=== PATIENT | male | born 1990 | race Caucasian/White ===

== ENCOUNTER 2019-02-14 04:08 | Observation (INO) | payer BC ==
[2019-02-14] MEDS ORDERED: NS 0.9% 1000 ML** 1,000 ML IV ONE (04:20)
[2019-02-14] MEDS ORDERED: Pantoprazole IV* 40 MG IV ONE (04:31)
--- NOTE | 2019-02-14 04:31 | ED ---
GI/ HPI - HPI Summary HPI Summary: This patient is a 28 year old M presenting to ED with a chief complaint of hematemesis 1x since 0300 this morning. On 02/13/19 patient felt normal and had a late lunch of leftover spicy food. Patient was on a boat on [place] until 1900. He tried to eat food at home at 2200, but felt the food got stuck. He forced the food down. Patient later in the night went out with friends and drank more alcohol and some water until 0000 this morning. Patient then went home and went to bed. With all his oral ingestion, patient reports the food or liquid getting stuck at the same spot. Patient woke up this morning at 0300 with sweating and began to feel epigastric pain that has been intermittent. He drank more water but was not feeling good. He then vomited multiple times tarry coffee ground with bright red blood only once. Patient has had history of difficulty breathing and food getting lodged in the esophagus, but he reports this is different. The patient rates the pain 7/10 in severity. Symptoms aggravated by nothing. Symptoms alleviated by nothing. Patient reports nausea, epigastric pain. - History of Current Complaint Chief Complaint: EDAbdPain Time Seen by Provider: 02/14/19 04:18 Stated Complaint: VOMITING BLOOD PER PT Hx Obtained From: Patient Onset/Duration: Started Hours Ago Timing: Intermittent Severity: Moderate Current Severity: Moderate Pain Intensity: 7 Location of Pain: Epigastric Pain Characteristics: Other: - Food/drink stuck Associated Signs and Symptoms: Positive: Hematemesis, Nausea, Vomiting, Abdominal Pain - Epigastric Aggravating Factor(s): Nothing Alleviating Factor(s): Nothing - Allergy/Home Medications Allergies/Adverse Reactions: Allergies Allergy/AdvReac Type Severity Reaction Status Date / Time No Known Allergies Allergy Verified 01/30/16 13:24 Home Medications: Home Medications Cetirizine HCl [Zyrtec] 10 mg PO DAILY PRN 02/14/19 [History Confirmed 02/14/19] Fluticasone NASAL SPRAY 50MCG* [Flonase NASAL SPRAY 50MCG*] 2 spray BOTH NARES DAILY PRN 02/14/19 [History Confirmed 02/14/19] PMH/Surg Hx/FS Hx/Imm Hx Endocrine/Hematology History: Denies: Hx Anticoagulant Therapy, Hx Diabetes, Hx Thyroid Disease Cardiovascular History: Denies: Hx Congestive Heart Failure, Hx Deep Vein Thrombosis, Hx Hypertension , Hx Myocardial Infarction, Hx Pacemaker/ICD Respiratory History: Denies: Hx Asthma, Hx Chronic Obstructive Pulmonary Disease (COPD), Hx Lung Cancer, Hx Pneumonia, Hx Pulmonary Embolism GI History: Reports: Hx Diverticulosis Denies: Hx Gall Bladder Disease, Hx Gastrointestinal Bleed, Hx Ulcer, Hx Urosepsis History: Denies: Hx Kidney Stones, Hx Renal Disease Neurological History: Denies: Hx Dementia, Hx Migraine, Hx Seizures, Hx Transient Ischemic Attacks (TIA) Psychiatric History: Reports: Hx Anxiety Denies: Hx Depression, Hx Schizophrenia, Hx Bipolar Disorder - Surgical History Surgery Procedure, Year, and Place: WISDOM TEETH EXTRACTION Infectious Disease History: No Infectious Disease History: Denies: Hx Hepatitis, Hx Human Immunodeficiency Virus (HIV), History Other Infectious Disease, Traveled Outside the [place] in Last 30 Days - Family History Known Family History: Positive: Non-Contributory - Social History Alcohol Use: Occasionally Hx Substance Use: No Substance Use Type: Reports: None Hx Tobacco Use: Yes Smoking Status (MU): Light Every Day Tobacco Smoker Type: Cigarettes Amount Used/How Often: 1 pk/wk Review of Systems Positive: Skin Diaphoresis Positive: Vomiting - Hemetemesis, Nausea All Other Systems Reviewed And Are Negative: Yes Physical Exam - Summary Physical Exam Summary: Appearance: Well-appearing, Well-nourished, lying in bed comfortable Skin: Warm, dry, no obvious rash Eyes: sclera anicteric, no conjunctival pallor ENT: mucous membranes moist Neck: deferred Respiratory: No signs of respiratory distress Cardiovascular: Appears well perfused, pulses are nml Abdomen: deferred Musculoskeletal: Moving all 4 extremities without obvious discomfort Neurological: Awake and alert, mentation is normal, speech is fluent and appropriate Psychiatric: affect is normal, does not appear anxious or depressed Triage Information Reviewed: Yes Vital Signs On Initial Exam: Initial Vitals Temp Pulse Resp BP Pulse Ox 97.3 F 77 18 125/88 98 02/14/19 04:09 02/14/19 04:09 02/14/19 04:09 02/14/19 04:09 02/14/19 04:09 Vital Signs Reviewed: Yes Diagnostics - Vital Signs Vital Signs Temp Pulse Resp BP Pulse Ox 02/14/19 04:09 97.3 F 77 18 125/88 98 - Laboratory Result Diagrams: 07/14/19 04:40 02/14/19 04:40 Lab Statement: Any lab studies that have been ordered have been reviewed, and results considered in the medical decision making process. GIGU Course/Dx - Course Course Of Treatment: This patient is a 28 year old M presenting to ED with a chief complaint of hematemesis 1x since 0300 this morning. In the ED course, patient received fluids, Protonix, Maalox Plus, and Xylocaine. Blood work obtained. Discussed patient case with LEIGH Cruz, who recommended a CXR. Patient will be signed out to Dr. Delroy Esposito at 0700 on 02/14/19 at shift change pending 2nd hemoglobin. - Diagnoses Provider Diagnoses: Upper GI bleed, Esophageal stricture - Physician Notifications Discussed Care Of Patient With: Rogers Barr Time Discussed With Above Provider: 07:05 Instructed by Provider To: Other - Discussed patient case with LEIGH Cruz, who recommended a CXR. Discharge - Sign-Out/Discharge Documenting (check all that apply): Sign-Out Patient Signing out patient TO: Delroy Esposito Patient Received Moderate/Deep Sedation with Procedure: No - Discharge Plan Condition: Stable Referrals: No Primary Care Phys,NOPCP [Primary Care Provider] - - Attestation Statements Document Initiated by Scribe: Yes Documenting Scribe: Geo Cabrera Provider For Whom Scribe is Documenting (Include Credential): Scar Mclain MD Scribe Attestation: Geo Colbert, scribed for Scar Mclain MD on 02/14/19 at 0705. Status of Scribe Document: Ready
[2019-02-14 04:48] LABS: ABS Basophils 0.1 10^3/ul (0-0.2); ABS Lymphocytes 3.2 10^3/ul (1.0-4.8); ABS Monocytes 0.8 10^3/ul (0-0.8); ABS Neutrophils 10.1 10^3/ul (1.5-7.7); Eosinophil % 0.3 %; Hematocrit 41 % (42-52); Lymphocyte % 22.4 %; Mean Corpuscular HGB Conc 34 g/dL (31-36); Mean Corpuscular Hemoglobin 30 pg (27-31); Mean Corpuscular Volume 89 fL (80-94); Mean Platelet Volume 9.5 fL (7.4-10.4); Platelet Count 338 10^3/uL (150-450); Red Blood Count 4.62 10^6 /uL (4.18-5.48); Red Cell Distribution Width 13 % (10-15); White Blood Count 14.2 10^3/uL (3.5-10.8)
[2019-02-14 05:01] LABS: Activated Partial Thrombo Time 31.9 seconds (26.0-38.0); INR 1.09 (0.82-1.09)
[2019-02-14 05:03] LABS: Albumin 4.8 g/dL (3.2-5.2); Albumin/Globulin Ratio 1.7 (1-3); BUN/Creatinine Ratio 26.7 (8-20); Calcium 9.5 mg/dL (8.6-10.3); EGFR African American 122.5 (>60); EGFR Non-African American 101.2 (>60); Globulin 2.9 g/dL (2-4); Total Bilirubin 0.9 mg/dL (0.2-1.0); Total Protein 7.7 g/dL (6.4-8.9)
[2019-02-14] MEDS ORDERED: Lidocaine 2% VISCOUS* 15 ML UDC PO ONE (05:54)
[2019-02-14] MEDS ORDERED: Al Hydrox/Mg Hydrox/Simet LIQ* 30 ML UDC PO ONE (05:54)
--- NOTE | 2019-02-14 07:13 | ED ---
Progress - Progress Note Progress Note: This patient was signed out from Dr. Mclain to Dr. Esposito upon shift change at 07 :00 02/14/19 pending second hemoglobin. Second H&H 12.36. The patient will be admitted to Dr. Pastrana, hospitalist. - EKG/XRAY/CT XRAY: chest Xray Comments: No active cardiopulmonary disease. ED physician has reviewed this report. Course/Dx - Course Course Of Treatment: This patient is a 28-year-old male who was signed out from Dr. Mclain. He reports that the patient had 2 episodes of hematemesis. He requested to repeat H&H and consult with Dr. Barr. The first H&H was and the second is 12./36. I discussed the case with Dr. Barr and since the H&H have decreased he requested for the patient to be admitted to the hospital services. I discuss my physical exam and test results with Dr. Pastrana from the hospitalist services and he agrees to admit patient to his services. Patient is hemodynamically stable alert and oriented x 3. - Diagnoses Provider Diagnoses: Upper GI bleed, Esophageal stricture - Provider Notifications Discussed Care Of Patient With: Rogers Barr Time Discussed With Above Provider: 08:33 Instructed by Provider To: Other - recommended admission Discharge - Sign-Out/Discharge Documenting (check all that apply): Patient Departure - admit, Receiving Sign- Out Receiving patient FROM: Scar Mclain Patient Received Moderate/Deep Sedation with Procedure: No - Discharge Plan Condition: Improved Disposition: ADMITTED TO [facility] - Billing Disposition and Condition Condition: FAIR Disposition: Admitted to [facility] - Attestation Statements Document Initiated by Tom: Yes Documenting Scribe: Ellis Wills Provider For Whom Tom is Documenting (Include Credential): Delroy Esposito MD Scribangela Attestation: I, Ellis Wills, scribed for Delroy Esposito MD on 02/15/19 at 2018. Scribe Documentation Reviewed: Yes Provider Attestation: The documentation as recorded by the Ellis bo accurately reflects the service I personally performed and the decisions made by me, Delroy Esposito MD Status of Scribe Document: Viewed Consult Consult: At 08:40- Discussed case with Dr. Pastrana, hospitalist, who accepted the patient for admission.
[2019-02-14 07:32] LABS: Hematocrit 36 % (42-52); Hemoglobin 12.4 g/dL (14.0-18.0)
[2019-02-14] MEDS ORDERED: Morphine INJ* 2 MG/ML 1 ML SYRINGE (TWO MG - NEW SYRINGE VERSION) IV PRN (09:40)
[2019-02-14] MEDS ORDERED: Ondansetron INJ* 2 MG/ML VIAL IV PRN (09:40)
[2019-02-14 09:59] LABS: C Reactive Protein 4.54 mg/L (<8.01)
[2019-02-14] MEDS ORDERED: Iohexol 300* (CONTRAST) 10 ML SDV IV ONE (10:42)
[2019-02-14] MEDS: NS 0.9% 1000 ML** 1,000 ML IV SCH ×2 (11:21→22:25)
[2019-02-14] MEDS: Pantoprazole* 80 mg IN NS 80 MG/250 ML BAG IV SCH ×2 (11:21→22:59)
--- NOTE | 2019-02-14 12:25 | CONS ---
GASTROENTEROLOGY CONSULT: DATE: 02/14/19 CONSULTING PHYSICIANS: Dr. Loni Pastrana; Dr. Prabhu Espinoza, [facility]. REASON FOR CONSULTATION: Epigastric distress and hematemesis at 3:30 a.m. HISTORY: This 28-year-old man was out on the [facility], Friday, and said it was a long day. He had some hot dogs and a hamburger, and spiked seltzer beltran. He went home and had some leftover takeout. He states he felt something get stuck for a few seconds. Solid food dyphagia events are actually fairly common for him and he says he normally cuts things smaller and chews more than the average person. He went to bed around 11. He awakened at 3, rather dyspeptic and had some antacids. At 3:30 he vomited bile and blood. He vomited several times at home. There was persistent aching in the lower substernal area. He came to the emergency room around 4 and was afebrile, with a white count of 14, and a chest x-ray that was negative. He had no further vomiting in the ER. He still complains of epigastric pain and pain when he burps. Under observation in the emergency room, he has had no further vomiting. His temp has remained fine. He has not had any bowel movements. He thinks his last bowel movement was yesterday. He is tired and on most questions initially says he cannot remember. PAST MEDICAL HISTORY: 1. Eosinophilic esophagitis - He had positive biopsies in January 2011 when he had upper endoscopy by Dr. Cano for history of dysphagia. The esophagus was said to appear normal so no dilation was done though there were eosinophils on biopsy. He is not sure who, but believes it was Dr. Burnette, who prescribed an inhaler for allergies that he was to swallow and he recalls now that he has prescriptions for Ventolin and Flonase. He has seen Dr. Espinoza periodically, most recently about 6 months ago. 2. Diverticular disease - In 2015 he presented to the ER and CT showed thickening of the transverse colon. He was treated with antibiotics. Colonoscopy a few months later showed a few left sided diverticuli and nothing else. His current diet is defined by his personal computer specialist. He says he tries to avoid very dry foods like chicken breasts and otherwise is low carbohydrate. MEDICATIONS: Inhalers, as described above. Difficult to pin down how often ALLERGIES: None. SOCIAL HISTORY: He is from [facility]. 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 [place]. REVIEW OF SYSTEMS: He currently does not have a regular primary physician. Today is the first ER visit since the diverticulitis episode in November 2015. Otherwise 12 pint ROS negative. EXAM: He is a tired young man, lying in bed, in his night clothes, in no overt distress pulmonary-sauer though points to the lower substernal area and asks why it is aching. His friend, THIEN, is with him. Blood pressure is 167/83, pulse 88 and regular. HEENT exam shows no icterus. Mucous membranes are normal. He has no adenopathy. His lungs are clear. Heart sounds are regular. The abdomen is symmetric with normal bowel sounds, firm, and with some nonlateralizing epigastric tenderness to deep palpation. Rectal is deferred. Extremities show no edema. There are no rashes. Neurologic is nonfocal, though his cooperation is limited in taking the history. He frequently would respond that he did not remember or would say every so often. LABS: Hemoglobin on arrival 14.0 and then 12.4, white count 14.2. CRP 4.54. BUN 24, he had a baseline of 9 three years ago. IMPRESSION: Esophageal injury from emesis and there is probably a deep laceration with a Rosenda-Parekh tear, although the aspect of greatest concern would be deep injury and potential for infection. Assessing for the deep injury with a Gastrografin swallow or CT scan is advised along with following his temps, white count, etc. For the moment, it appears as though he is stable and will likely do well, although the outcome is not entirely clear. Once he stabilizes and is without pain, then in a couple of weeks repeat endoscopy would be helpful. Then review of optimal lifestyle, diet, and potential regular ongoing therapy for the esophagus is to be considered. Yesterday's events clearly set off a significant episode of reflux and vomiting. [id number]/[facility] #: [id number] [facility]
[2019-02-14 12:37] LABS: Hematocrit 36 % (42-52); Hemoglobin 12.2 g/dL (14.0-18.0)
--- NOTE | 2019-02-14 12:41 | HP ---
CC: Dr. Barr * HISTORY AND PHYSICAL: DATE OF ADMISSION: 02/14/19 PRIMARY CARE PROVIDER: None. CHIEF COMPLAINT: Vomiting blood. HISTORY OF PRESENT ILLNESS: Mr. Jules is a 28-year-old male with history of exercise-induced asthma for which he takes inhaler occasionally, as well as colonoscopy that showed diverticulosis in the past couple of years, who presented to the hospital complaining of vomiting blood. The patient stated that he was out [place], [place]. He had a couple of beers and later on he felt epigastric discomfort and he started vomiting. He was vomiting "lots of black and bloody stuff". It happened 4 times, together with epigastric discomfort. The vomiting resolved. He presented to the ED for evaluation. He still has some epigastric discomfort that he is complaining of. He has not had a bowel movement for the past couple of days. In addition to the above mentioned, the patient complains of occasional problems with heartburn, but otherwise he had been in his usual health. The patient is going to be admitted for overnight observation with a diagnosis of hematemesis. PAST MEDICAL HISTORY: 1. History of exercise-induced asthma. 2. History of diverticulosis. MEDICATIONS: At home includes: 1. Flonase nasal spray 2 sprays to both nostrils daily p.r.n. 2. Zyrtec 10 mg daily p.r.n. 3. Albuterol inhaler on a p.r.n. basis. ALLERGIES: No known drug allergies. FAMILY HISTORY: Positive for father with hypertension. 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 He smoked a pack of cigarettes in a week. Currently he uses vaporized nicotine. His surrogate decision maker is his father. The patient stated that he also drinks on weekends only and he denies any drug use. REVIEW OF SYSTEMS: Please see history of present illness. All the remaining 12 systems were reviewed with the patient and are otherwise negative. PHYSICAL EXAMINATION GENERAL: The patient is a very pleasant 28-year-old male who is in no acute distress. Alert and oriented x3. VITAL SIGNS: Blood pressure of 157/72, heart rate of 107 and regular, respiratory rate 16, oxygen saturation 96% on room air, temperature of 97.3. HEENT: Head is atraumatic, normocephalic. Eyes: Pupils are equal, reactive to light and accommodation. Oropharynx clear. Mucosa moist. NECK: Supple. No JVD. No bruits bilaterally. RESPIRATORY: Clear to auscultation bilaterally. CARDIOVASCULAR: Regular rate and rhythm. No murmur. ABDOMEN: Soft, tender minimally in the epigastric region, with no rebound and no guarding. Bowel sounds present in all 4 quadrants. EXTREMITIES: There is no edema. Pulses are +2 bilaterally. There is no clubbing or cyanosis. NEURO EVALUATION: Speech is clear. Cranial nerves II through XII are grossly intact. Motor strength is 5/5 bilaterally. DIAGNOSTIC STUDIES/LAB DATA: Laboratory data shows sodium of 138, potassium 4.0, chloride 98, carbon dioxide 24, BUN 24, creatinine 0.9. Liver function tests unremarkable. CBC: White blood cell count 14.2, hemoglobin of 14.0, hematocrit of 41, and platelets of 338. Repeat hemoglobin after a liter of IV fluids showed hemoglobin of 12.4. Portable chest x-ray, impression: "No active cardiopulmonary disease." ASSESSMENT AND PLAN: 1. A 28-year-old male who had hematemesis 4 times today. The patient is going to be placed on overnight observation. He is going to be supported with intravenous fluids and Protonix drip. We will check his H and H's every 8 hours. The patient is going to be placed on ice chips only diet, as well as a Protonix drip. I asked Dr. Barr to see the patient in consultation. 2. In regards to the patient's exercised-induced asthma it is not in exacerbation and his albuterol inhaler is going to be continued on an as needed basis. 3. For DVT prophylaxis, the patient is a low risk and ambulation is going to be encouraged. TIME SPENT: Approximately 55 minutes were spent on the admission of this patient, more than half of that time was spent [id number] with the patient, doing the interview and physical exam. [id number]/[facility] #: [id number] ADITI
--- NOTE | 2019-02-14 22:21 | DS ---
CC: [facility] - Dr. Freeman; Dr. Vera; Dr. Barr.* DISCHARGE SUMMARY: DATE OF ADMISSION: 02/14/19 DATE OF ANTICIPATED DISCHARGE: 02/14/19 in the evening. PRIMARY CARE PROVIDER: The patient does not have a primary care provider. CONDITION AT DISCHARGE: Stable. DISPOSITION AT DISCHARGE: Home. DISCHARGE DIAGNOSIS: Hematemesis likely due to Rosenda-Parekh tear. SECONDARY DIAGNOSES: 1. History of diverticular disease. 2. History of eosinophilic esophagitis, diagnosed in 2010. 3. History of exercise-induced asthma. MEDICATIONS AT DISCHARGE: Include: 1. Prilosec 20 mg twice a day. 2. Tums on a p.r.n. basis. 3. Zofran 4 mg every 6 hours p.r.n. Remaining inhalers are unchanged, those include: 1. Albuterol inhaler on a p.r.n. basis. 2. Zyrtec 10 mg daily. 3. Flonase 2 sprays both nostrils daily p.r.n. CONSULTATIONS DURING THE HOSPITAL STAY: Included Dr. Barr from Gastroenterology. LABORATORY DATA: Throughout the hospital stay included followup hemoglobin which was 4.4 and 12.2 respectively. The patient's chest CT was obtained with contrast on 02/14/19, impression: "Fatty infiltration of the liver. Otherwise, no acute CT pathology of the chest. Visualized esophagus is unremarkable for the CT technique." HOSPITALIZATION COURSE: Ronald Jules is a 28-year-old male who presented to the hospital complaining of vomiting blood. For further details, please see history and physical dictated by myself on the same day. Shortly, the patient was evaluated by the cnc technician. His hemoglobin after initial drop, after intravenous fluid boluses from the ED was stable throughout his hospital stay. At this point, the patient is on clear liquid diet and he continues to have some epigastric discomfort, but no vomiting anymore. I had a long discussion with the patient. The patient would prefer to go home, but then he is unsure if he feels good enough to go. We decided that the patient is going to try to eat soft diet, and if the discomfort is too much, he is going to stay overnight with followup hemoglobin in the morning and continuation of his current treatment. If he continues to feel better and he tolerates soft diet, he can be discharged home tonight with followup in [facility] in approximately 7 days. PHYSICAL EXAMINATION AT DISCHARGE: Unchanged from admission. [id number]/[facility] #: [id number] ADITI
[2019-02-15 06:33] LABS: ABS Eosinophils 0.1 10^3/ul (0-0.6); ABS Lymphocytes 2.4 10^3/ul (1.0-4.8); ABS Monocytes 0.8 10^3/ul (0-0.8); ABS Neutrophils 2.9 10^3/ul (1.5-7.7); Eosinophil % 1.1 %; Hematocrit 29 % (42-52); Hemoglobin 10.1 g/dL (14.0-18.0); Lymphocyte % 39.2 %; Mean Corpuscular HGB Conc 35 g/dL (31-36); Mean Corpuscular Hemoglobin 32 pg (27-31); Mean Corpuscular Volume 90 fL (80-94); Mean Platelet Volume 9.7 fL (7.4-10.4); Nucleated Red Blood Cells % 0.1; Platelet Count 168 10^3/uL (150-450); Red Blood Count 3.18 10^6 /uL (4.18-5.48); Red Cell Distribution Width 13 % (10-15); White Blood Count 6.2 10^3/uL (3.5-10.8)
[2019-02-15 06:57] LABS: BUN/Creatinine Ratio 14.9 (8-20); Calcium 8.4 mg/dL (8.6-10.3); EGFR African American 127.4 (>60); EGFR Non-African American 105.3 (>60); Potassium 3.8 mmol/L (3.5-5.0)
[2019-02-15] MEDS: Pantoprazole* 80 mg IN NS 80 MG/250 ML BAG IV SCH (09:05)
[2019-02-15] MEDS: NS 0.9% 1000 ML** 1,000 ML IV SCH (09:06)
[2019-02-15 13:44] LABS: Hematocrit 28 % (42-52); Hemoglobin 9.6 g/dL (14.0-18.0)
[2019-02-15] MEDS ORDERED: Calcium Carbonate CHEW TAB* 500 MG (TUMS) PO PRN (14:20)
[2019-02-15 15:55] VITALS: BP 117/46
--- NOTE | 2019-02-15 21:27 | DS ---
CC: Primary Care Provider * ADDENDUM TO DISCHARGE SUMMARY: DATE OF ADMISSION: 02/14/19 DATE OF DISCHARGE: 02/15/19 ADDENDUM: Mr. Jules stayed the evening of 02/14/19 and 02/15/19 due to ongoing discomfort with swallowing. Followup hemoglobin obtained on the morning of did drop from 12.2 down to 10.1. I suspect this is still likely dilutional. The patient did have a black stool on the evening of 02/14/19 and his stool on the morning of 02/15/19 was black, but also somewhat green. The patient has had no visible bleeding and no hematemesis. He does continue to have pain with swallowing especially if he is not sitting upright. At this point, the patient's hemoglobin is relatively stable around 10. Without any active signs of bleeding, I will go ahead and discharge the patient home. He has been instructed to follow up with Dr. Cano in the next 1 to 2 weeks for EGD for evaluation. I have also recommended that the patient get a CBC on 02/19/19 to ensure his hemoglobin is stable. The patient has been instructed to monitor for continued black stools or any recurrent hematemesis. Additionally, he has been instructed to monitor for improvement in the pain with swallowing. We discussed this would likely take several days to continue to improve. He will stay on a soft diet as long as he is having discomfort with swallowing. The patient will also take omeprazole 20 mg twice daily x2 weeks. He will use Tums or Maalox for acid reflux. He has prescription for Zofran already. PHYSICAL EXAMINATION: On the day of discharge, the patient is awake, alert, and oriented, sitting up in bed, in no acute distress. Cardiac exam reveals normal S1, S2 with regular rate and rhythm. Lungs are clear. Abdomen is soft, nondistended. He is mildly tender to palpation in the epigastrium. He moves all 4 extremities symmetrically. Skin is without rash. FOLLOWUP CONCERNS: The patient is being discharged home today, 02/15/19. Activity level is as tolerated. Diet is soft, advancing as tolerated. CONDITION ON DISCHARGE: Stable. FOLLOWUP: The patient is to follow up with [facility] in the next 4 to 7 days and have a CBC on 02/19/19. He is also to make an appointment with Dr. Cano. I offered to make this appointment for him; however, he requested to schedule this on his own. TIME SPENT: Twenty minutes was spent discharging this patient. [id number]/[facility] #: [id number] ADITI
== END 2019-02-15 16:30 | disposition home or self-care (01) ==
LOC: ED 04:08 → MED 09:40
PROVIDERS: ADMIT Internal Medicine; ATTEND Hospitalist
DX: K92.0 Hematemesis (principal); K22.6 Gastro-esophageal laceration-hemorrhage syndrome; K57.90 Diverticulosis of intestine, part unspecified, without perforation or abscess without bleeding; J45.909 Unspecified asthma, uncomplicated; F17.210 Nicotine dependence, cigarettes, uncomplicated; K76.0 Fatty (change of) liver, not elsewhere classified
CPT/HCPCS: 36415; 71046; 71260; 80048; 80053; 85014; 85018; 85025; 85610; 85730; 86140; 86850; 86900; 86901; 96361; 96374; 96376; 99284; A9270-GY; G0378; Q9967

== ENCOUNTER 2019-06-07 16:36 | Emergency (ER) | payer BC ==
[2019-06-07 16:58] VITALS: BP 176/74
--- OUTSIDE RECORDS SUMMARY | 2019-06-07 17:00 | XMS REPORT | Continuity of Care Document ---
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 Medicine Problems Description No Active Problems Social History Type Date Description Comments Sex Unknown Tobacco Use Start: Unknown Light tobacco smoker (10 or fewer cigarettes/day) Smoking Status Reviewed: 05/28/19 Light tobacco smoker (10 or fewer cigarettes/day) Tobacco Use Start: Unknown Patient is a current 1 pk a week x 1 -2 year, smoker, smokes some days believes will quit Allergies, Adverse Reactions, Alerts Active Allergies Reaction Severity Comments Date NKDA 12/14/2012 Seasonal 02/25/2019 Medications Active Medications SIG Qnty Indications Ordering Provider Date Ventolin HFA 2 puffs every 4 1units J45.909 [place] 11/17/2014 hours as needed ADRIANA Martinez 108(90Base) mcg/Act for cough or Aerosol shortness of breath Omeprazole 1 by mouth every Unknown 10mg day Capsules DR De La Vegagra Allergy 1 by mouth twice a Unknown 60mg day as needed Tablets allergy symptoms Tums 1 by mouth twice a Unknown 500mg Chewtabs day Doxycycline 20 or 40 mg daily Unknown 40mg for acne rosacea Capsules Immunizationcurt Description No Information Available Vital Signs Date Vital Result Comment 05/28/2019 1:57pm BP Systolic 124 mmHg BP Diastolic 86 mmHg Heart Rate 60 /min Body Temperature 98.1 F Respiratory Rate 16 /min Height 70.5 inches 5'10.50" Weight 185.00 lb BMI (Body Mass Index) 26.2 kg/m2 02/25/2019 9:48am BP Systolic 100 mmHg BP Diastolic 80 mmHg Heart Rate 50 /min Body Temperature 97.2 F Respiratory Rate 16 /min Height 70.5 inches 5'10.50" Weight 182.00 lb BMI (Body Mass Index) 25.7 kg/m2 Results Test Date Facility Test Result H/L Range Note CBC Electronic [facility] 02/25/2019 [facility]) WBC 4.5 x10^3/UL 4.0- 10.0 RBC 3.81 x10^6/UL Low 3.93-6.00 HGB 11.6 g/dL Low 12.0-17.0 HCT 35 % 35-50 MCV 91.9 fL 80.0-95.0 MCH 30.4 pg 25.6-32.2 MCHC 33.1 g/dL 32.2-36.0 RDW-CV 12.9 % 11.6-14.4 PLT 397 x10^3/UL 163-400 MPV 11.2 fL 9.4-12.4 [place]# 2.30 x10^3/UL 1.56-6.13 Lymph# 1.62 x10^3/UL 1.18-3.74 [place]# 0.42 x10^3/UL 0.24-0.82 Eos # 0.1 x10^3/UL 0.0-0.5 Baso # 0.03 x10^3/UL 0.01-0.08 [place]% 51.6 % 34.0-70.0 Lymph % 36.3 % 20.0-52.0 [place]% 9.4 % 5.0-12.0 Eos% 1.6 % 0.7-7.0 Baso% 0.7 % 0.1-1.2 Procedures Description No Information Available Medical Devices Description No Information Available Encounters Type Date Location Provider Dx Diagnosis Office Visit 02/25/2019 9:40a Main Office Kentrell Borja MD K92.0 Hematemesis Assessments Date Code Description Provider 05/28/2019 Z00.00 Encounter for general adult medical Kentrell Borja MD examination without abnormal findings 02/25/2019 K92.0 Hematemesis Kentrell Borja MD Plan of Treatment Future Appointment(s):06/03/2019 9:15 am - Kentrell Borja MD at [facility]/28/2019 - Kentrell Borja MDZ00.00 Encounter for general adult medical examination without abnormal findingsNew Labs:CCS-Comp And Lipid ([facility]), Ordered: 05/28/19AllComments:Medication Management Patient Understands medications he's taking? Yes No Are there Barriersto Adherence? Yes No Has the patient been asked about herbal supplements and therapies, and OTC meds? Yes No Functional Status Description No Information Available Mental Status Description No Information Available Referrals Description No Information Available
--- OUTSIDE RECORDS SUMMARY | 2019-06-07 17:00 | XMS REPORT | Continuity of Care Document ---
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 Problems Active Problems Provider Date Mild intermittent asthma JESI Pineda Onset: 02/18/2018 Uncomplicated moderate persistent asthma Prabhu Espinoza MD Onset: Allergic rhinitis Prabhu Espinoza MD Onset: 12/26/2017 Allergic rhinitis due to pollen Prabhu Espinoza MD Onset: 12/26/2017 Social History Type Date Description Comments Sex Unknown Tobacco Use Start: Unknown Patient has never smoked Tobacco Use Start: Unknown No Second Hand Smoke Exposure Smoking Status Reviewed: 02/18/18 No Second Hand Smoke Exposure Allergies, Adverse Reactions, Alerts Description No Known Drug Allergies Medications Active Medications SIG Qnty Indications Ordering Provider Date Fexofenadine HCL take 1 tablet by 30tabs J30.1 Tasha Jimenez NP 2017 180mg mouth every day Tablets as needed Fluticasone Propionate spray 2 sprays 16gm Tasha Jimenez NP 12/31/2017 in each nostril 50mcg/Act Suspension daily Ventolin HFA 2 puffs by mouth 18gm Tasha Jimenez NP 108(90Base) four times a day mcg/Act Aerosol as needed Metronidazole as needed Unknown 0.75% Cream Immunizations Description No Information Available Vital Signs Date Vital Result Comment 04/23/2019 2:57pm BP Systolic 163 mmHg BP Diastolic 118 mmHg Height 71 inches 5'11" Weight 180.00 lb BMI (Body Mass Index) 25.1 kg/m2 Heart Rate 72 /min O2 % BldC Oximetry 96 % 02/18/2018 3:03pm BP Systolic 128 mmHg BP Diastolic 72 mmHg Height 71 inches 5'11" Weight 200.00 lb BMI (Body Mass Index) 27.9 kg/m2 Heart Rate 62 /min Respiratory Rate 18 /min Body Temperature 97.9 F O2 % BldC Oximetry 99 % Results Description No Information Available Procedures Description No Information Available Medical Devices Description No Information Available Encounters Description No Information Available Assessments Description No Information Available Plan of Treatment No Information Available Functional Status Description No Information Available Mental Status Description No Information Available Referrals Description No Information Available
--- OUTSIDE RECORDS SUMMARY | 2019-06-07 17:00 | XMS REPORT | Continuity of Care Document ---
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 Medicine Problems Active Problems Provider Date Exercise-induced asthma Tasha Jimenez NP Onset: 04/23/2019 Mild intermittent asthma JESI Pineda Onset: 02/18/2018 [...] Medications Active Medications SIG Qnty Indications Ordering Date Provider Xopenex HFA inhale 2 puffs 45units Tasha Jimenez, 04/23/2019 45mcg/Act by mouth every 4 [facility] Aerosol hours as needed Fexofenadine HCL take 1 tablet by 30tabs J30.1 Tasha Jimenez, 01/02/2018 180mg mouth every day [facility] Tablets as needed Fluticasone Propionate spray 2 sprays 16gm Tasha Jimenez, 12/31/2017 in each nostril [facility] 50mcg/Act Suspension daily Ventolin HFA 2 puffs by mouth 18gm Tasha Jimenez, 108(90Base) four times a day [facility] mcg/Act Aerosol as needed Metronidazole as needed [...] Date Location Provider Dx Diagnosis Office Visit 04/23/2019 Venkatesh Jimenez NP J45.990 Exercise induced 3:00p bronchospasm J30.89 Other allergic rhinitis Assessments Date Code Description Provider 04/23/2019 J45.990 Exercise induced bronchospasm Tasha Jimenez NP 04/23/2019 J30.89 Other allergic rhinitis Tasha Jimenez NP Plan of Treatment 04/23/2019 - Tasha Jimenez NPJ45.990 Exercise induced bronchospasmComments: Patient reports exercise-induced bronchospasm, he will use 2 inhalations of albuterol prior to exercise 3 times weekly. He does report a lot of cardiac stimulation after taking this medication. He isin agreement to trial Xopenex 2 inhalations prior to exercise.He is well controlled with fexofenadine, and he uses Nasonex for his breakthrough symptoms. Patient reports he is tolerating medications well with no adverse side effects.Patient declined PFT and NiOx study today due to time constraints.Patient's blood pressure to be elevated at 168/113. He did not wish to have it rechecked in the office. He is in agreement to checking it in the pharmacy he believes he has white coat syndrome. I told him if he has several readings 130/80 or higher he needs to follow-up with primary care provider.J30.89 Other allergic rhinitis Functional Status Description No Information Available Mental Status Description No Information Available Referrals Description No Information Available
--- NOTE | 2019-06-07 17:15 | UC ---
Cardiac HPI - HPI Summary HPI Summary: 29 yo male with left lateral chest pain x 2 weeks multiple episodes day lasts minutes no sob no n/v no diarphoresis occasionally associated with palpitations - History of Current Complaint Chief Complaint: UCChestPain Stated Complaint: CHEST PAIN Time Seen by Provider: 06/07/19 16:42 Hx Obtained From: Patient Onset/Duration: Gradual Onset, Lasting Minutes Timing: Intermittent Episodes Lasting: Initial Severity: Moderate Current Severity: Mild Pain Intensity: 5 Character: Fast - at times, Dull/Aching Aggravating Factor(s): Nothing Alleviating Factor(s): Spontaneous Resolution Associated Signs & Symptoms: Positive: Chest Pain - Risk Factors Cardiac Risk Factors: Smoking, Family History - Allergy/Home Medications Allergies/Adverse Reactions: Allergies Allergy/AdvReac Type Severity Reaction Status Date / Time No Known Allergies Allergy Verified 06/07/19 16:57 PMH/Surg Hx/FS Hx/Imm Hx Previously Healthy: Yes GI/ History: Other Other GI/ History: esophatitis Other History Of: Negative For: HIV, Hepatitis B, Hepatitis C, Anticoagulant Therapy - Surgical History Surgical History: Yes Surgery Procedure, Year, and Place: WISDOM TEETH EXTRACTION - Family History Known Family History: Positive: Cardiac Disease, Hypertension, Non-Contributory - Social History Alcohol Use: Weekly Substance Use Type: None Smoking Status (MU): Light Every Day Tobacco Smoker Type: eCigarettes Amount Used/How Often: 1 pk/wk Cessation Counseling: Patient Advised to Stop Review of Systems All Other Systems Reviewed And Are Negative: Yes Constitutional: Positive: Negative Skin: Positive: Negative Eyes: Positive: Negative ENT: Positive: Negative Respiratory: Positive: Negative Cardiovascular: Positive: Palpitations, Chest Pain Genitourinary: Positive: Negative Motor: Positive: Negative Neurovascular: Positive: Negative Musculoskeletal: Positive: Negative Neurological: Positive: Negative Psychological: Positive: Negative Physical Exam Triage Information Reviewed: Yes Appearance: Well-Appearing, No Pain Distress, Well-Nourished Vital Signs: Initial Vital Signs Temp 98.9 F 06/07/19 16:46 Pulse 60 06/07/19 16:46 Resp 18 06/07/19 16:46 BP 176/74 06/07/19 16:46 Pulse Ox 98 06/07/19 16:46 Vital Signs Reviewed: Yes Eyes: Positive: Conjunctiva Clear ENT: Positive: Hearing grossly normal. Negative: Nasal congestion, Nasal drainage, Trismus, Muffled voice, Hoarse voice Dental Exam: Normal Neck: Positive: Supple, Nontender, No Lymphadenopathy Respiratory: Positive: Chest non-tender, Lungs clear, Normal breath sounds, No respiratory distress, No accessory muscle use Cardiovascular: Positive: RRR, No Murmur Abdomen Description: Positive: Nontender, No Organomegaly, Soft Bowel Sounds: Positive: Present Musculoskeletal: Positive: ROM Intact, No Edema Neurological: Positive: Alert Psychological Exam: Normal Skin Exam: Normal Images Front/Back of Body, Lg (Johnson): 1 - location of pain 2 - location of pain Diagnostics - Radiology No standard instances Radiology Interpretation Completed By: Radiologist Summary of Radiographic Findings: NAD - EKG Cardiac Rate: NL Cardiac Rhythm: Sinus: Normal Ectopy: None ST Segment: Normal - Clinical Impression Provider Diagnosis: Chest pain, Palpitations with regular cardiac rhythm Discharge ED - Sign-Out/Discharge Documenting (check all that apply): Patient Departure All imaging exams completed and their final reports reviewed: Yes - Discharge Plan Condition: Stable Disposition: HOME Patient Education Materials: Chest Pain (ED), Heart Palpitations (ED) Referrals: Kentrell Borja MD [Primary Care Provider] - As Soon As Possible (call tomorrow and let them know your symptoms make a follow up appt) - Billing Disposition and Condition Condition: STABLE Disposition: Home
== END 2019-06-07 18:05 | disposition home or self-care (01) ==
LOC: UCEAST 16:36
DX: R07.9 Chest pain, unspecified (principal); F17.290 Nicotine dependence, other tobacco product, uncomplicated; R00.2 Palpitations
CPT/HCPCS: 71046; 93005; 99211; G0463